=== PATIENT | male | born 1975 | race Caucasian/White ===

== ENCOUNTER 2018-02-18 14:01 | Outpatient (CLI) | payer OTHER ==
--- NOTE | 2018-02-19 11:35 | MRI Report ---
EXAM: LEFT KNEE MRI WITHOUT CONTRAST EXAM DATE: 02/18/2018 02:55 PM. CLINICAL HISTORY: Internal derangement, left knee. COMPARISON: None. TECHNIQUE: Multiplanar, multisequence T1-weighted and fluid-sensitive sequences of the knee without c ontrast. Other: None. FINDINGS: Bones: Subjacent marrow edema on both sides of the lateral compartment. Small cystic change seen at t he tibial plateau. 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 So me grade 2 chondromalacia at the weightbearing aspect of the medial tibial plateau. Patellofemoral ar ticulation appears intact. Medial Meniscus: Complex medial meniscal tear. A fairly prominent fragment is noted crowded into the posterior aspect of the medial compartment. Lateral Meniscus: Lateral compartment also shows a complex tear at the undersurface/posterior horn. N o displaced fragment. Cruciate Ligaments: The anterior and posterior cruciate ligaments are intact. Collateral Ligaments: The medial collateral and lateral collateral ligamentous structures are intact. Tendons: The quadriceps, patellar, semimembranosus, and popliteus tendons are unremarkable. Musculature: There is some increased T2 signal at the musculotendinous junction of the proximal aspec t of the lateral head of the gastrocnemius without focal fluid-filled gap. Other: No effusion. No popliteal cyst. No loose bodies. The medial and lateral retinacula are intact . The subcutaneous tissues and fat pads are unremarkable. IMPRESSION: 1. Lateral compartment shows some subjacent marrow edema on both sides. Small cystic change also seen lateral tibial plateau. Lateral compartment shows a complex tear at the undersurface/posterior horn, no displaced fragment. 2. Medial meniscus shows a complex meniscal tear and a fairly prominent meniscal fragment crowded int o the posterior aspect of the medial compartment. Series 501 image 19. 3. Cruciates and collaterals appear unremarkable. 3. Musculotendinous strain involves the proximal aspect of the lateral and the gastrocnemius musculot endinous junction. [facility] MUSCULOSKELETAL RADIOLOGY SECTION Referring Provider Line: [phone] SITE ID: [id number]
== END 2018-02-18 14:02 | disposition home or self-care (01) ==
LOC: DI 14:01
PROVIDERS: ATTEND Family Medicine
DX: S83.282A Other tear of lateral meniscus, current injury, left knee, initial encounter (principal); S83.242A Other tear of medial meniscus, current injury, left knee, initial encounter; S86.112A Strain of other muscle(s) and tendon(s) of posterior muscle group at lower leg level, left leg, initial encounter; M85.662 Other cyst of bone, left lower leg